=== PATIENT | female | born 1945 | race Caucasian/White ===

== ENCOUNTER → 2018-03-03 | Outpatient (CLI) | payer OTHER ==
[2018-03-05 12:10] LABS: HPV Genotype 16 Not Detected (NOTDET); HPV Genotype 18 Not Detected (NOTDET)
[2018-03-08 12:58] LABS: HPV High Risk Other Not Detected (NOTDET)
== END | disposition home or self-care (01) ==
LOC: LAB SHORT 12:06 → LAB 12:06
PROVIDERS: Obstetrics & Gynecology
DX: Z01.419 Encounter for gynecological examination (general) (routine) without abnormal findings (principal)
CPT/HCPCS: 87624; G0123

== ENCOUNTER 2024-05-03 09:31 | Day surgery (SDC) | payer OTHER ==
[~2024-05-03] VITALS: Ht 162.6 cm; Wt 60.0 kg
[~2024-05-03 09:31] MED LIST: Lactated Ringer's 1,000 ML IV ONE; Lidocaine HCl/Pf 1% 5 ML VIAL ONE; propofoL 50 ML IV ONE
[2024-05-03] MEDS ORDERED: IRBE75 (09:56)
[2024-05-03] MEDS ORDERED: Lactated Ringer's 1,000 ML IV ONE (10:17)
[2024-05-03 11:28] VITALS: BP 133/72
== END 2024-05-03 11:29 | disposition home or self-care (01) ==
LOC: ORSCSDS 09:31
PROVIDERS: Specialist
PROC: 0DBK8ZX Excision of Ascending Colon, Via Natural or Artificial Opening Endoscopic, Diagnostic (ICD-10-PCS; principal; 2024-05-03 10:45)
PROC: 0DBP8ZX Excision of Rectum, Via Natural or Artificial Opening Endoscopic, Diagnostic (ICD-10-PCS; principal; 2024-05-03 10:45)
DX: Z12.11 Encounter for screening for malignant neoplasm of colon (principal); D12.2 Benign neoplasm of ascending colon; K62.1 Rectal polyp; K64.8 Other hemorrhoids; K57.30 Diverticulosis of large intestine without perforation or abscess without bleeding; I10 Essential (primary) hypertension
CPT/HCPCS: 88305; J2001; J2704; J7120